=== PATIENT | male | born 2000 | race Caucasian/White ===

== ENCOUNTER 2021-05-01 19:12 | Inpatient (IN) | payer BC, OTHER ==
[~2021-05-01] VITALS: Ht 185.4 cm; Wt 116.5 kg
[2021-05-01] MEDS ORDERED: HYDROcodone-ACET 5/325MG TAB PO ONE (19:15)
[2021-05-01] MEDS ORDERED: HYDROcodone-ACET 5/325MG TAB ONE (19:17)
[2021-05-01] MEDS ORDERED: cefTRIAXone 1GM/50ML D5W 50 ML IV ONE (21:00)
[2021-05-01] MEDS ORDERED: SODIUM CHLORIDE 0.9% 1,000 ML IV ONE (21:00)
[2021-05-01] MEDS ORDERED: KETOROLAC TROMETH 30 MG/ML 1ML VIAL IV ONE (21:00)
[2021-05-01] MEDS ORDERED: SODIUM CHLORIDE 0.9% 500 ML IV ONE (21:00)
[2021-05-01] MEDS ORDERED: MORPHINE SULFATE 4 MG/ML SYR/VIAL IV PRN (22:30)
[2021-05-01] MEDS ORDERED: ONDANSETRON HCL 4 MG/2 ML VIAL IV PRN (22:30)
[2021-05-01] MEDS ORDERED: ACETAMINOPHEN 325 MG TAB PO PRN (22:30)
[2021-05-01 22:57] LABS: Basophils # (auto) 0.1 10 ^3/uL (0-0.2); Basophils % (auto) 0.5 % (0.0-2.0); Eosinophils # (auto) 0.2 10 ^3/uL (0-0.8); Eosinophils % (auto) 1.5 % (0.0-7.0); Hematocrit 45.4 % (41.0-53.0); Hemoglobin 15.4 g/dL (13.5-17.5); Lymphocytes # (auto) 1.7 10 ^3/uL (0.4-5.4); Lymphocytes % (auto) 12.1 % (10.0-50.0); Mean Corpuscular Hemoglobin 29.9 pg (28.0-32.0); Mean Corpuscular Volume 87.9 fL (80.0-100.0); Monocytes # (auto) 1.3 10 ^3/uL (0-1.3); Monocytes % (auto) 9.4 % (0.0-12.0); Neutrophils # (auto) 10.6 10 ^3/uL (1.6-8.6); Neutrophils % (auto) 76.5 % (37.0-80.0); Nucleated Red Blood Cells % 0.2 %; Red Blood Cells 5.17 10^6/uL (4.5-5.90); Red Cell Distribution Width 12.8 % (11.8-14.3); White Blood Cell 13.9 10^3/uL (4.4-10.8)
[2021-05-01 23:16] LABS: Albumin 3.8 g/dL (3.4-5.0); BUN/Creatinine Ratio 10.5; Calcium 9.3 mg/dL (8.5-10.1); Magnesium 2.2 mg/dL (1.6-2.6); Potassium 3.7 mmol/L (3.5-5.1)
[2021-05-01 23:19] LABS: Bilirubin, Total 0.7 mg/dL (0.2-1.0); Total Protein 8.7 g/dL (6.4-8.2)
[2021-05-01] MEDS ORDERED: IOHEXOL 300 MG/ML 100ML BOTTLE IJ ONE (23:44)
[2021-05-02] MEDS ORDERED: MORPHINE SULFATE INJECTION 2 MG/ML SYRG IV PRN (00:30)
[2021-05-02] MEDS ORDERED: NITROGLYCERIN 0.4 MG SL TAB SL PRN (00:30)
[2021-05-02 00:50] VITALS: BP 117/74
[2021-05-02] MEDS ORDERED: DOXY100C2 PO (03:24)
[2021-05-02 05:00] VITALS: BP 120/72
[2021-05-02 05:43] LABS: Basophils # (auto) 0 10 ^3/uL (0-0.2); Basophils % (auto) 0.4 % (0.0-2.0); Eosinophils # (auto) 0.2 10 ^3/uL (0-0.8); Eosinophils % (auto) 1.8 % (0.0-7.0); Hematocrit 40.8 % (41.0-53.0); Hemoglobin 14.4 g/dL (13.5-17.5); Lymphocytes # (auto) 1.9 10 ^3/uL (0.4-5.4); Lymphocytes % (auto) 14.7 % (10.0-50.0); Mean Corpuscular Hemoglobin 31.1 pg (28.0-32.0); Mean Corpuscular Hgb Conc. 35.2 g/dL (32.0-36.0); Mean Corpuscular Volume 88.4 fL (80.0-100.0); Monocytes # (auto) 1.5 10 ^3/uL (0-1.3); Monocytes % (auto) 11.4 % (0.0-12.0); Neutrophils # (auto) 9.2 10 ^3/uL (1.6-8.6); Neutrophils % (auto) 71.7 % (37.0-80.0); Nucleated Red Blood Cells % 0.1 %; Red Blood Cells 4.61 10^6/uL (4.5-5.90); Red Cell Distribution Width 12.7 % (11.8-14.3); White Blood Cell 12.9 10^3/uL (4.4-10.8)
[2021-05-02 05:54] LABS: Calcium 8.5 mg/dL (8.5-10.1)
[2021-05-02 06:03] LABS: BUN/Creatinine Ratio 13.8; Bilirubin, Total 0.6 mg/dL (0.2-1.0); Total Protein 7.2 g/dL (6.4-8.2)
[2021-05-02] MEDS: D5W/SOD CHL 0.45% 1,000 ML IV SCH ×2 (06:47→15:20)
[2021-05-02 09:00] VITALS: BP 116/72
[2021-05-02] MEDS: FAMOTIDINE (10MG/ML) 2ML VL IV SCH (09:40)
[2021-05-02] MEDS: cefTRIAXone 1GM/50ML D5W 50 ML IV SCH (09:40)
[2021-05-02] MEDS: HYDROcodone-ACET 5/325MG TAB PO PRN ×2 (09:41→16:41)
[2021-05-02 12:37] LABS: INR 0.98 (0.9-1.15); Partial Thromboplastin Time 29.9 sec (23.6-33.0)
[2021-05-02 13:00] VITALS: BP 117/58
[2021-05-02] MEDS: metroNIDAZOLE 500MG/100ML 100 ML IV SCH ×2 (13:06→13:13)
[2021-05-02 17:00] VITALS: BP 134/68
[2021-05-02 22:00] VITALS: BP 133/75
[2021-05-03] MEDS: HYDROcodone-ACET 5/325MG TAB PO PRN ×3 (00:14→21:18)
[2021-05-03] MEDS: D5W/SOD CHL 0.45% 1,000 ML IV SCH ×2 (04:50→18:00)
[2021-05-03 05:00] VITALS: BP 112/67
[2021-05-03] MEDS: metroNIDAZOLE 500MG/100ML 100 ML IV SCH ×3 (05:20→21:18)
[2021-05-03] MEDS: cefTRIAXone 1GM/50ML D5W 50 ML IV SCH (08:26)
[2021-05-03] MEDS: FAMOTIDINE (10MG/ML) 2ML VL IV SCH (08:26)
[2021-05-03 08:30] VITALS: BP 134/88
[2021-05-03] MEDS ORDERED: ceFAZolin 1GM/50ML 100 ML IV ONE (12:14)
[2021-05-03] MEDS ORDERED: GLYCOPYRROLATE 0.2 MG/ML 1ML VIAL ONE (12:26)
[2021-05-03] MEDS ORDERED: KETOROLAC TROMETH 30 MG/ML 1ML VIAL ONE (12:26)
[2021-05-03] MEDS ORDERED: ONDANSETRON HCL 4 MG/2 ML VIAL ONE (12:26)
[2021-05-03] MEDS ORDERED: HYDROmorphone HCL 2 MG/ML VL ONE (12:26)
[2021-05-03] MEDS ORDERED: fentaNYL CITRATE 100 MCG/2 ML VL ONE (12:26)
[2021-05-03] MEDS ORDERED: PROPOFOL 10 MG/ML 20 ML IV ONE (12:26)
[2021-05-03] MEDS ORDERED: DexAMETHasone SOD PHOS 10MG/1ML VIAL INJ ONE (12:26)
[2021-05-03] MEDS ORDERED: LIDOCAINE 2% (LOCAL ANESTH.) PF 5ml SDV ONE (12:26)
[2021-05-03] MEDS ORDERED: MIDAZOLAM HCL 2MG/2ML 2ml VIAL (1mg/ml) ONE (12:27)
[2021-05-03] MEDS ORDERED: SUGAMMADEX 200mg/2ml Vial (100MG/ML) IV ONE (13:53)
[2021-05-03] MEDS ORDERED: NALOXONE HCL 0.4 MG/ML VIAL ONE (13:55)
[2021-05-03] MEDS ORDERED: HYDROmorphone HCL 2 MG/ML VL IV PRN (14:30)
[2021-05-03] MEDS ORDERED: ONDANSETRON HCL 4 MG/2 ML VIAL IV PRN (14:30)
[2021-05-03 17:00] VITALS: BP 131/83
[2021-05-03 22:00] VITALS: BP 132/77
[2021-05-04 05:00] VITALS: BP 114/54
[2021-05-04] MEDS: D5W/SOD CHL 0.45% 1,000 ML IV SCH (06:18)
[2021-05-04] MEDS: HYDROcodone-ACET 5/325MG TAB PO PRN ×2 (06:18→10:38)
[2021-05-04] MEDS: metroNIDAZOLE 500MG/100ML 100 ML IV SCH ×2 (06:18→14:03)
[2021-05-04 09:00] VITALS: BP 121/87
[2021-05-04] MEDS: cefTRIAXone 1GM/50ML D5W 50 ML IV SCH (09:27)
[2021-05-04] MEDS: FAMOTIDINE (10MG/ML) 2ML VL IV SCH (09:27)
[2021-05-04 13:00] VITALS: BP 121/70
[2021-05-04 17:00] VITALS: BP 110/60
== END 2021-05-04 17:33 | disposition home health service (06) | DRG 603 ==
LOC: ER 19:13 → OVERFLOW 05-02 00:25 → WEST WING 05-02 00:50
PROVIDERS: ADMIT Nurse Practitioner Family; ATTEND Hospitalist
PROC: 0H98XZZ Drainage of Buttock Skin, External Approach (ICD-10-PCS; principal; 2021-05-03 13:02)
DX: L05.01 Pilonidal cyst with abscess (principal); E66.01 Morbid (severe) obesity due to excess calories; E11.9 Type 2 diabetes mellitus without complications; D72.829 Elevated white blood cell count, unspecified; Z20.822 Contact with and (suspected) exposure to COVID-19; Z68.32 Body mass index [BMI] 32.0-32.9, adult
CPT/HCPCS: 36415; 74177; 80053; 83605; 83735; 85025; 85610; 85730; 87040; 87070; 87075; 87076; 87077; 87205; 87426; 96361; 96365; 96375; G0378; J0690; J0696; J1100; J1885; J2001; J2250; J2405; J2704; J3490